=== PATIENT | female | born 1980 | race Caucasian/White ===

== ENCOUNTER 2018-05-29 15:50 | Emergency (ER) | payer OTHER ==
[~2018-05-29] VITALS: Ht 162.6 cm; Wt 75.3 kg
[~2018-05-29 15:50] MED LIST: BG MC; COLACE100 MG PO; FER300 PO; GLU500 PO; LISINOPRIL10 MG PO; MIRALAX17 GM/Dose PO; NOR10T PO; VITAMIN C250 M1 PO
[2018-05-29 15:53] VITALS: Ht 162.6 cm; Wt 75.3 kg
[2018-05-29 18:16] VITALS: BP 127/86
== END 2018-05-29 18:16 | disposition home or self-care (01) ==
LOC: ED 15:50
DX: S02.5XXA Fracture of tooth (traumatic), initial encounter for closed fracture (principal); S81.811A Laceration without foreign body, right lower leg, initial encounter; S09.90XA Unspecified injury of head, initial encounter; S00.81XA Abrasion of other part of head, initial encounter; S60.512A Abrasion of left hand, initial encounter; S60.811A Abrasion of right wrist, initial encounter; S80.212A Abrasion, left knee, initial encounter; S80.211A Abrasion, right knee, initial encounter; W54.0XXA Bitten by dog, initial encounter; Y93.89 Activity, other specified; Y92.89 Other specified places as the place of occurrence of the external cause; Y99.8 Other external cause status
CPT/HCPCS: 90715; J2001

== ENCOUNTER 2019-01-14 06:40 | Inpatient (IN) | payer OTHER ==
[~2019-01-14] VITALS: Ht 160 cm; Wt 73.0 kg
[2019-01-14 06:44] VITALS: Ht 160 cm; Wt 73.0 kg
[2019-01-14 07:28] LABS: PLATELET COUNT 317 x10^3mcL (130-400); RED CELL DISTRIBUTION WIDTH 13.1 % (11.5-14.5)
[2019-01-14 07:39] LABS: CALCIUM 8.6 mg/dL (8.5-10.1); CARBON DIOXIDE 23.8 mmol/L (21-32); CHLORIDE SERUM 97 mmol/L (98-107); CREATININE SERUM 0.7 mg/dL (0.6-1.0); GFR1 > 60 mL/min; GLUCOSE SERUM 163 mg/dL (74-106); POTASSIUM SERUM 3.2 mmol/L (3.5-5.1); SODIUM SERUM 132 mmol/L (136-145)
[2019-01-14 07:43] LABS: ALBUMIN 3.4 g/dL (3.4-5.0); ALKALINE PHOSPHATASE 146 U/L (46-116); ALT/SGPT 114 U/L (14-59); AST/SGOT 67 U/L (15-37); BILIRUBIN TOTAL 0.8 mg/dL (0.20-1.00)
[2019-01-14 07:46] LABS: TOTAL PROTEIN, SERUM 8.5 g/dL (6.4-8.2)
[2019-01-14 09:26] LABS: BAND NEUTROPHIL 18 % (0-10); BASOPHIL 0 % (0-2); MONOCYTE 8 % (0-7); SEGMENTED NEUTROPHILS 63 % (37-75)
[2019-01-14 09:27] LABS: PLATELET MORPHOLOGY PLATELETS NORMAL
[2019-01-14 09:28] LABS: rbc morphology (normal/abnorm) NORMAL (NORMAL)
[2019-01-14 12:03] LABS: UA SPECIFIC GRAVITY >=1.030 (1.005-1.035); microscopic required? YES; urine erythrocyte 3+ (NEGATIVE)
[2019-01-14 14:14] LABS: MAGNESIUM 2.1 mg/dL (1.8-2.4); PHOSPHOROUS 2.4 mg/dL (2.5-4.9)
[2019-01-14 14:42] LABS: CHOLESTEROL/HDL RATIO 4.1
[2019-01-14 16:27] VITALS: BP 115/80
[2019-01-14 17:30] VITALS: BP 116/78
[2019-01-14 21:03] VITALS: BP 123/77
[2019-01-15 05:30] VITALS: BP 111/77
[2019-01-15 07:14] LABS: CALCIUM 8.3 mg/dL (8.5-10.1); CHLORIDE SERUM 100 mmol/L (98-107); CREATININE SERUM 0.6 mg/dL (0.6-1.0); GFR1 > 60 mL/min; GLUCOSE SERUM 140 mg/dL (74-106); MAGNESIUM 2.2 mg/dL (1.8-2.4); PHOSPHOROUS 2.1 mg/dL (2.5-4.9); POTASSIUM SERUM 3.6 mmol/L (3.5-5.1); SODIUM SERUM 132 mmol/L (136-145)
[2019-01-15 07:19] LABS: BASOPHIL % 0.4 % (0-2); PLATELET COUNT 320 x10^3mcL (130-400); RED CELL DISTRIBUTION WIDTH 12.8 % (11.5-14.5)
[2019-01-15 09:06] VITALS: BP 101/65
[2019-01-15 18:19] VITALS: BP 125/79
[2019-01-15 20:38] VITALS: BP 102/60
[2019-01-16 05:46] VITALS: BP 130/80
[2019-01-16 06:35] LABS: CALCIUM 8.6 mg/dL (8.5-10.1); CARBON DIOXIDE 25.7 mmol/L (21-32); CHLORIDE SERUM 102 mmol/L (98-107); CREATININE SERUM 0.5 mg/dL (0.6-1.0); GFR1 > 60 mL/min; GLUCOSE SERUM 107 mg/dL (74-106); MAGNESIUM 2.3 mg/dL (1.8-2.4); PHOSPHOROUS 3.2 mg/dL (2.5-4.9); POTASSIUM SERUM 3.5 mmol/L (3.5-5.1); SODIUM SERUM 138 mmol/L (136-145)
[2019-01-16 06:49] LABS: BASOPHIL % 0.6 % (0-2); PLATELET COUNT 374 x10^3mcL (130-400); RED CELL DISTRIBUTION WIDTH 12.8 % (11.5-14.5)
[2019-01-16 09:20] VITALS: BP 132/69
[2019-01-16] MEDS ORDERED: BACDS PO (15:13)
[2019-01-16] MEDS ORDERED: LAC PO (15:13)
[2019-01-16 15:24] VITALS: BP 132/69
== END 2019-01-16 15:47 | disposition home or self-care (01) | DRG 871 ==
LOC: ED 06:40 → MU 13:12
PROVIDERS: Emergency Medicine; ADMIT General Practice
DX: A41.9 Sepsis, unspecified organism (principal); N17.0 Acute kidney failure with tubular necrosis; N39.0 Urinary tract infection, site not specified; E87.1 Hypo-osmolality and hyponatremia; E11.65 Type 2 diabetes mellitus with hyperglycemia; E86.0 Dehydration; E87.6 Hypokalemia; E83.39 Other disorders of phosphorus metabolism; N18.1 Chronic kidney disease, stage 1; E78.5 Hyperlipidemia, unspecified
CPT/HCPCS: 87804; J0696; J1885; J7030; Q0092

== ENCOUNTER 2019-05-18 14:42 | Emergency (ER) | payer OTHER ==
[~2019-05-18] VITALS: Ht 160 cm; Wt 66.2 kg
[~2019-05-18 14:42] MED LIST changes: +BACDS PO; +LAC PO
[2019-05-18 14:48] VITALS: Ht 160 cm; Wt 66.2 kg
[2019-05-18 15:55] LABS: BASOPHIL % 0.5 % (0-2); PLATELET COUNT 366 x10^3mcL (130-400); RED CELL DISTRIBUTION WIDTH 13.6 % (11.5-14.5)
[2019-05-18 18:23] VITALS: BP 142/71
== END 2019-05-18 18:23 | disposition home or self-care (01) ==
LOC: ED 14:42
PROVIDERS: Emergency Medicine
DX: N93.9 Abnormal uterine and vaginal bleeding, unspecified (principal); D25.9 Leiomyoma of uterus, unspecified; E11.9 Type 2 diabetes mellitus without complications; F32.9 Major depressive disorder, single episode, unspecified; Z98.890 Other specified postprocedural states
CPT/HCPCS: 36415

== ENCOUNTER 2019-08-16 20:40 | Emergency (ER) | payer OTHER ==
[~2019-08-16] VITALS: Ht 160 cm; Wt 69.4 kg
[2019-08-16 23:58] LABS: UA SPECIFIC GRAVITY <=1.005 (1.005-1.035); microscopic required? YES; urine erythrocyte 2+ (NEGATIVE)
[2019-08-17 00:17] LABS: BASOPHIL % 0.3 % (0-2); PLATELET COUNT 368 x10^3mcL (130-400); RED CELL DISTRIBUTION WIDTH 13.8 % (11.5-14.5)
[2019-08-17 00:19] LABS: AMPHETAMINE QUAL UR NONE DETECTED (See below)
[2019-08-17 00:32] LABS: CALCIUM 8.5 mg/dL (8.5-10.1); CARBON DIOXIDE 27.1 mmol/L (21-32); CHLORIDE SERUM 99 mmol/L (98-107); CREATININE SERUM 0.8 mg/dL (0.6-1.0); GFR1 > 60 mL/min; GLUCOSE SERUM 123 mg/dL (74-106); POTASSIUM SERUM 3.2 mmol/L (3.5-5.1); SODIUM SERUM 138 mmol/L (136-145)
[2019-08-17 00:44] LABS: ALBUMIN 4.1 g/dL (3.4-5.0); ALKALINE PHOSPHATASE 94 U/L (46-116); ALT/SGPT 23 U/L (14-59); AST/SGOT 12 U/L (15-37); BILIRUBIN TOTAL 0.7 mg/dL (0.20-1.00); CHOLESTEROL 195 mg/dL (<200); HDL CHOLESTEROL 51 mg/dL (40-60); LIPASE 79 IU/L (73-393); T4(THYROXINE) 7.7 ug/dL (4.7-13.3)
[2019-08-17 00:51] LABS: TOTAL PROTEIN, SERUM 8.5 g/dL (6.4-8.2)
[2019-08-17 02:17] VITALS: BP 118/73
== END 2019-08-17 02:17 | disposition home or self-care (01) ==
LOC: ED 20:40
PROVIDERS: Emergency Medicine
DX: D72.829 Elevated white blood cell count, unspecified (principal); F32.9 Major depressive disorder, single episode, unspecified; E11.9 Type 2 diabetes mellitus without complications
CPT/HCPCS: 82962; 87804; J0696; J7030

== ENCOUNTER 2019-08-19 16:51 | Emergency (ER) | payer OTHER ==
[~2019-08-19] VITALS: Ht 160 cm; Wt 67.3 kg
[2019-08-19 17:01] VITALS: Ht 160 cm; Wt 67.3 kg
[2019-08-19 18:25] VITALS: BP 133/95
== END 2019-08-19 18:25 | disposition home or self-care (01) ==
LOC: ED 16:51
DX: B00.1 Herpesviral vesicular dermatitis (principal); L42 Pityriasis rosea; F32.9 Major depressive disorder, single episode, unspecified; E11.9 Type 2 diabetes mellitus without complications

== ENCOUNTER 2020-09-08 06:55 | Emergency (ER) | payer OTHER ==
[~2020-09-08] VITALS: Ht 160 cm; Wt 73.5 kg
[2020-09-08 07:07] VITALS: Ht 160 cm; Wt 73.5 kg
[2020-09-08 07:55] LABS: CALCIUM 8.4 mg/dL (8.5-10.1); CHLORIDE SERUM 99 mmol/L (98-107); CREATININE SERUM 0.7 mg/dL (0.6-1.0); GFR1 > 60 mL/min; GLUCOSE SERUM 138 mg/dL (74-106); POTASSIUM SERUM 3.7 mmol/L (3.5-5.1); SODIUM SERUM 133 mmol/L (136-145)
[2020-09-08 07:57] LABS: ALBUMIN 3.9 g/dL (3.4-5.0); ALKALINE PHOSPHATASE 98 U/L (46-116); ALT/SGPT 38 U/L (14-59); AST/SGOT 36 U/L (15-37); BILIRUBIN TOTAL 0.7 mg/dL (0.20-1.00)
[2020-09-08 08:29] LABS: microscopic required? YES; urine erythrocyte 2+ (NEGATIVE)
[2020-09-08 09:13] LABS: BASOPHIL % 0.3 % (0-2); PLATELET COUNT 349 x10^3mcL (130-400); RED CELL DISTRIBUTION WIDTH 13.4 % (11.5-14.5)
[2020-09-08 09:28] VITALS: BP 122/89
== END 2020-09-08 09:29 | disposition home or self-care (01) ==
LOC: ED 06:55
PROVIDERS: Emergency Medicine
DX: B34.9 Viral infection, unspecified (principal); J06.9 Acute upper respiratory infection, unspecified; E11.9 Type 2 diabetes mellitus without complications; Z20.828 Contact with and (suspected) exposure to other viral communicable diseases
CPT/HCPCS: J0456; J7030; Q0092

== ENCOUNTER 2020-09-30 17:28 | Emergency (ER) | payer OTHER ==
[~2020-09-30] VITALS: Ht 162.6 cm; Wt 69.9 kg
[2020-09-30 18:48] VITALS: BP 121/82; Ht 162.6 cm; Wt 69.9 kg
== END 2020-09-30 19:28 | disposition home or self-care (01) ==
LOC: ED 17:28
DX: U07.1 COVID-19 (principal); B34.9 Viral infection, unspecified; E11.9 Type 2 diabetes mellitus without complications
CPT/HCPCS: U0003